=== PATIENT | female | born 2000 | race Caucasian/White ===

== ENCOUNTER 2024-03-27 20:20 | Emergency (ER) | payer MEDICAID ==
[~2024-03-27] VITALS: Ht 167.6 cm; Wt 90.9 kg
[2024-03-27] MEDS ORDERED: LIDOcaine 2% Viscous 15ml cup MM PRN (21:40)
[2024-03-27] MEDS ORDERED: LIDO15SO9 PO (21:42)
[2024-03-27] MEDS ORDERED: PRED20TA PO (21:42)
[2024-03-27] MEDS ORDERED: AMOX-117 PO (21:42)
[2024-03-27] MEDS: ketorolac trometh. 30mg/ml inj. IM ONE (21:57)
[2024-03-27 22:01] VITALS: BP 129/68; PULSE 76; RESP 12; TEMP 98.4; O2SAT 98
== END 2024-03-27 22:02 | disposition home or self-care (01) ==
LOC: ER 20:22
DX: J02.9 Acute pharyngitis, unspecified (principal)
CPT/HCPCS: 96372; 99283; J1885